=== PATIENT | female | born 1990 | race Native Hawaiian/Other Pacific Islander ===

== ENCOUNTER → 2016-07-11 | Outpatient (CLI) | payer OTHER ==
[2016-07-11 14:39] LABS: CH 31.7; CHCM 33.4; HCT 34.7 % (34.0-46.0); HDW 2.31; HGB 11.7 gm/dL (11.4-16.0); MCH 32.2 pg (25.0-35.0); MCHC 33.7 g/dL (31.0-37.0); MCV 95.4 fL (80.0-100.0); Mean Platelet Volume 6.7; RBC 3.64 m/uL (3.80-5.40); RDW 13.6 % (11.5-15.5); WBC 10.7 k/uL (3.8-10.6)
== END | disposition home or self-care (01) ==
LOC: LABWHC1 12:58
PROVIDERS: ATTEND Obstetrics & Gynecology
DX: Z34.92 Encounter for supervision of normal pregnancy, unspecified, second trimester (principal); Z3A.00 Weeks of gestation of pregnancy not specified
CPT/HCPCS: 36415; 82950; 85027

== ENCOUNTER 2016-10-28 06:00 | Inpatient (IN) | payer OTHER ==
--- NOTE | 2016-10-27 12:42 | P.HPOB ---
History of Present Illness H&P Date: 10/27/16 Chief Complaint: Induction of labor This is a 26-year-old female 1 para 0 with an estimated date of confinement of 10/20/2016, estimated gestational age of 41 and one sevenths weeks, who presents to labor and delivery for induction of labor secondary to postdates. She admits to good movement. She has been feeling irregular contractions. course has been essentially uncomplicated other than swelling in her legs and feet. labs: Syphilis antibody-negative Random glucose-75 Hepatitis B surface antigen-negative Hemoglobin-11.6 Rubella-low positive Antibody screen-negative Blood type-AB+ Obstetrical ultrasound-normal anatomy One hour Glucola-87 Group B streptococcus-negative Obstetrical history: Gynecologic history: No history of sexual transmitted diseases Social history: She is single and works at [employer] in [employer] Constitutional: Denies chills, Denies fever Eyes: denies blurred vision, denies pain Ears, nose, mouth and throat: Denies headache, Denies sore throat Cardiovascular: Denies chest pain, Denies shortness of breath Respiratory: Denies cough Gastrointestinal: Reports abdominal pain (Irregular contractions) Genitourinary: Reports pelvic pain, Reports Musculoskeletal: Reports low back pain Musculoskeletal: bilateral: ankle swelling, foot swelling Neurological: Reports as per HPI, Denies numbness, Denies weakness Psychiatric: Denies anxiety, Denies depression Past Medical History Past Medical History: No Reported History Past Surgical History: No Surgical Hx Reported Past Psychological History: No Psychological Hx Reported Smoking Status: Current every day smoker Past Alcohol Use History: None Reported Past Drug Use History: None Reported - Past Family History Father Family Medical History: Hypertension Medications and Allergies Home Medications Medication Instructions Recorded Confirmed Type Pnv No.95/Ferrous Fum/Folic AC 1 each PO 10/27/16 History [ Multivitamin Tablet] Allergies Allergy/AdvReac Type Severity Reaction Status Date / Time No Known Allergies Allergy Verified 10/27/16 12:41 Exam Osteopathic Statement: *. No significant issues noted on an osteopathic structural exam other than those noted in the History and Physical/Consult. HEENT: Within normal limits Heart: Regular rate and rhythm Lungs: Clear to auscultation bilaterally Abdomen: Cervix: 3 cm/70%/-1 station heart tones: Reactive Contractions: Irregular Extremities: Negative Homans Assessment and Plan (1) Post term , 41 weeks Status: Acute Plan: Proceed with oxytocin induction of labor. Expectant management. Epidural anesthesia if desired.
[2016-10-28] MEDS ORDERED: CARBOPROST TROMETHAMINE 250 MCG/ML 1 ML AMP IM PRN (06:16)
[2016-10-28] MEDS ORDERED: TERBUTALINE 1 MG/ML VIAL SQ PRN (06:16)
[2016-10-28] MEDS ORDERED: LIDOCAINE 1% (PF) 10 MG/ML (30 ML SDV) SQ PRN (06:16)
[2016-10-28] MEDS ORDERED: LIDOCAINE 1% 20 ML VIAL (10MG/ML) FOR IV START INTRADERMA PRN (06:16)
[2016-10-28] MEDS ORDERED: OXYTOCIN 20 UNITS/1000 ML NS 1,000 ML IV SCH ×2 (06:16→20:41)
[2016-10-28] MEDS ORDERED: OXYTOCIN 10 UNIT/ML 1 ML VIAL IM PRN (06:16)
[2016-10-28] MEDS ORDERED: METHYLERGONOVINE 0.2 MG/ML 1 ML AMP IM PRN (06:16)
[2016-10-28 06:27] VITALS: BMI 36.2
[2016-10-28] MEDS: LACTATED RINGERS 1,000 ML IV SCH ×3 (06:40→18:04)
[2016-10-28 06:43] LABS: Basophils % (A) 0 %; CH 30.6; CHCM 33.4; Eosinophils # (A) 0.3 k/uL (0-0.7); Eosinophils % (A) 3 %; HCT 34.3 % (34.0-46.0); HDW 2.63; HGB 11.2 gm/dL (11.4-16.0); Luc # (Auto) 0.23; Luc % (Auto) 2; Lymphocytes # (A) 2.4 k/uL (1.0-4.8); Lymphocytes % (A) 20 %; MCH 30.2 pg (25.0-35.0); MCHC 32.8 g/dL (31.0-37.0); Mean Platelet Volume 8.4; Monocytes # (A) 0.6 k/uL (0-1.0); Monocytes % (A) 5 %; Neutrophils # (A) 8.6 k/uL (1.3-7.7); Neutrophils % (A) 71 %; RBC 3.73 m/uL (3.80-5.40); RDW 14.9 % (11.5-15.5); WBC 12.2 k/uL (3.8-10.6); WBC (Perox) 12.41
[2016-10-28] MEDS ORDERED: SODIUM CHLORIDE 0.9% 100 ML BAG ONE (12:55)
[2016-10-28] MEDS ORDERED: BUPIVACAINE (PF) 0.25% 30 ML VIAL ONE (12:55)
[2016-10-28] MEDS ORDERED: fentaNYL (PF) 50 MCG/ML 5 ML AMP ONE (12:55)
[2016-10-28] MEDS ORDERED: LANOLIN CREAM 5 GM TUBE TOPICAL PRN (20:41)
[2016-10-28] MEDS ORDERED: MEASLES-MUMPS-RUBELLA VACC/PF 12,500 UNIT/0.5 ML VIAL SQ ONE (20:41)
[2016-10-28] MEDS ORDERED: ACETAMINOPHEN TAB 325 MG TAB PO PRN (20:41)
[2016-10-28] MEDS ORDERED: ZOLPIDEM 5 MG TAB PO PRN (20:41)
[2016-10-28] MEDS ORDERED: WITCH HAZEL 1 EACH MED..PAD TOPICAL PRN (20:41)
[2016-10-28] MEDS ORDERED: HYDROCORTISONE 2.5% RECTAL CREAM 30 GM TUBE RECTAL PRN (20:41)
[2016-10-28] MEDS ORDERED: diphenhydrAMINE 50 MG CAP PO PRN (20:41)
[2016-10-28] MEDS ORDERED: Acetaminophen-Codeine 300-30mg TAB PO PRN (20:41)
[2016-10-28] MEDS ORDERED: diphenhydrAMINE 50 MG/ML 1 ML VIAL IVP PRN ×2 (20:41)
[2016-10-28] MEDS ORDERED: BENZOCAINE/MENTHOL SPRAY 1 GM/SPRAY AEROSOL TOPICAL PRN (20:41)
[2016-10-28] MEDS ORDERED: SIMETHICONE 80 MG CHEWABLE PO PRN (20:41)
[2016-10-28] MEDS ORDERED: diphenhydrAMINE 25 MG CAP PO PRN (20:41)
--- NOTE | 2016-10-28 20:53 | P.PROBDLV ---
Vaginal Delivery Note - . Vaginal Delivery Note: The patient progressed to complete dilation after oxytocin induction of labor and artificial rupture of membranes with clear fluid noted. She did receive epidural anesthesia. Once reaching complete dilation, she began pushing. 's head came to a crown. Perineum was anesthetized with 1% lidocaine and then a midline episiotomy was cut. With one further push, the infant's head delivered across the perineum followed by the anterior shoulder in the left occiput anterior lie with a nuchal left hand along with a loop of cord near the hand. Nose and mouth were bulb suctioned at the perineum and meconium fluid was noted at this time. With one further push, the remainder the infant easily delivered and was placed on mother's abdomen. Nose and mouth were again bulb suctioned and cord was clamped and cut. Infant was taken to warmer for evaluation and a viable male was noted with Apgars of 6 at 1 minute and 7 at 5 minutes and 9 at 10 minutes. weight was 7 lbs. 4 oz. Placenta delivered shortly thereafter, intact, with a three-vessel cord. Uterus contracted well after oxytocin was given and uterine massage was carried out. Inspection of the perineum revealed a midline episiotomy with no further extension. This area was anesthetized with 1% lidocaine and then sutured with 3 -0 and 2-0 Vicryl suture in the usual multilayer fashion. Estimated blood loss is approximately 200 mL's. Both mother and are in stable condition.
[2016-10-28] MEDS: IBUPROFEN 600 MG TAB PO PRN (21:01)
[2016-10-28 21:09] VITALS: RESP 16
[2016-10-28] MEDS: SENNOSIDES-DOCUSATE SODIUM 1 EACH TAB PO SCH (21:56)
[2016-10-28] MEDS: Acetaminophen-Codeine 300-30mg TAB PO PRN (23:54)
[2016-10-29] MEDS: IBUPROFEN 600 MG TAB PO PRN ×2 (04:51→14:12)
[2016-10-29 07:53] LABS: Basophils # (A) 0.1 k/uL (0-0.2); Basophils % (A) 0 %; CH 30.7; Eosinophils # (A) 0.2 k/uL (0-0.7); Eosinophils % (A) 1 %; HCT 26.6 % (34.0-46.0); HDW 2.58; Luc # (Auto) 0.21; Luc % (Auto) 1; Lymphocytes # (A) 2.3 k/uL (1.0-4.8); Lymphocytes % (A) 15 %; MCH 30.2 pg (25.0-35.0); MCHC 32.3 g/dL (31.0-37.0); MCV 93.5 fL (80.0-100.0); Mean Platelet Volume 8.3; Monocytes # (A) 0.7 k/uL (0-1.0); Monocytes % (A) 5 %; Neutrophils # (A) 11.7 k/uL (1.3-7.7); Neutrophils % (A) 77 %; RBC 2.85 m/uL (3.80-5.40); RDW 14.8 % (11.5-15.5); WBC 15.1 k/uL (3.8-10.6); WBC (Perox) 15.51
[2016-10-29 07:56] LABS: HGB 8.6 gm/dL (11.4-16.0)
[2016-10-29] MEDS: SENNOSIDES-DOCUSATE SODIUM 1 EACH TAB PO SCH ×2 (08:05→20:44)
[2016-10-29] MEDS: Acetaminophen-Codeine 300-30mg TAB PO PRN ×2 (10:06→19:40)
--- NOTE | 2016-10-29 10:23 | P.PNOBGVD ---
Subjective - Subjective Principal diagnosis: Status post vaginal delivery day #1 Interval history: Patient is doing well. She is sore on her bottom. Lochia is decreasing. She is breast-feeding. Pain is fairly well controlled with ibuprofen and Tylenol 3. Patient reports: Reports appetite normal, Reports voiding normally, Reports pain well controlled, Reports ambulating normally : doing well, nursing well Objective - Latest Vital Signs Latest vital signs: Vital Signs Temp Pulse Pulse Resp BP 10/29/16 08:06 98.5 F 90 16 123/80 10/29/16 04:00 98.9 F 94 16 121/74 10/29/16 00:00 98.3 F 98 16 109/73 10/28/16 22:45 98.0 F 116 H 16 116/72 10/28/16 22:15 92 16 120/60 10/28/16 21:45 90 16 118/70 10/28/16 21:30 90 16 114/64 10/28/16 21:15 91 16 115/64 10/28/16 21:00 108 H 16 118/65 10/28/16 20:45 98.0 F 100 16 115/61 Intake and Output 10/28/16 10/29/16 10/29/16 22:59 06:59 14:59 Intake Total 44.2 Balance 44.2 Intake: Intake, IV Titration 44.2 Amount Oxytocin 20 Units/1000 ml 44.2 Ns 1,000 ml @ 1 MILLIUNIT/MIN 3 mls/hr IV .Q24H ANATOLY Rx#:[id number] Other: # Voids 1 - Exam Extremities: Present: edema (1-2+ pitting edema). Absent: tenderness Abdomen: Present: normal appearance, soft. Absent: distention, tenderness Uterus: Present: normal, firm. Absent: tenderness - Labs Labs: Abnormal Lab Results - Last 24 Hours (Table) 10/29/16 Range/Units 06:55 WBC 15.1 H (3.8-10.6) k/uL RBC 2.85 L (3.80-5.40) m/uL Hgb 8.6 L D (11.4-16.0) gm/dL Hct 26.6 L (34.0-46.0) % Neutrophils # 11.7 H (1.3-7.7) k/uL Assessment and Plan (1) Post term , 41 weeks Narrative/Plan: Impression is status post vaginal delivery day #1. Plan is to continue with care today and anticipate discharge home tomorrow. Current Visit: Yes Status: Acute Code(s): O48.0 - POST-TERM ; Z3A.41 - 41 WEEKS GESTATION OF SNOMED Code(s): 493760554
[2016-10-30] MEDS: IBUPROFEN 600 MG TAB PO PRN ×2 (00:14→12:05)
[2016-10-30 00:47] VITALS: TEMP 98.3
[2016-10-30] MEDS: Acetaminophen-Codeine 300-30mg TAB PO PRN ×2 (04:09→08:17)
[2016-10-30] MEDS: SENNOSIDES-DOCUSATE SODIUM 1 EACH TAB PO SCH (08:17)
--- NOTE | 2016-10-30 08:40 | P.DS ---
Providers Date of admission: 10/28/16 06:03 Expected date of discharge: 10/30/16 Attending physician: Sofya Paige Primary care physician: Stated None - Discharge Diagnosis(es) (1) Post term , 41 weeks Current Visit: Yes Status: Acute Hospital Course: This is a 26-year-old female 1 para 0 at 41 and one sevenths weeks who presented for induction of labor. She underwent oxytocin induction of labor and delivered a viable male on 10/28/2016 with scores of 6 at 1 minute and 7 at 5 minutes and 9 at 10 minutes, and weight of 7 lbs. 4 oz. Her course is been uncomplicated. She is breast-feeding. Lochia is decreasing. Pain is fairly well controlled with ibuprofen and Tylenol 3. Vital signs are stable. Abdomen is soft with fundus firm and nontender. Extremities show negative Homans. Impression is status post vaginal delivery day #2. Plan is to discharge home today. Routine instructions are given. She will be given a prescription for ibuprofen and Tylenol 3 along with a prescription for a breast pump. She is advised to call the office if she has any further questions or concerns prior to her appointment time. She is advised to follow up in the office in 6 weeks for a check. Procedures: Oxytocin induction of labor Spontaneous vaginal delivery of a viable male infant on 10/28/2016 Patient Condition at Discharge: Stable Plan - Discharge Summary New Discharge Prescriptions: New Acetaminophen-Codeine 300-30mg [Tylenol w/codeine #3] 1 each PO Q4HR PRN #30 tab PRN Reason: Mild Pain exceeding Tylenol Ibuprofen [Motrin] 600 mg PO Q6HR PRN #60 tab PRN Reason: Mild Pain Or Fever >= 100.5 Continue Pnv No.95/Ferrous Fum/Folic AC [ Multivitamin Tablet] 1 tab PO DAILY Discharge Medication List Pnv No.95/Ferrous Fum/Folic AC [ Multivitamin Tablet] 1 tab PO DAILY [History] Acetaminophen-Codeine 300-30mg [Tylenol w/codeine #3] 1 each PO Q4HR PRN #30 tab 10/30/16 [Rx] Ibuprofen [Motrin] 600 mg PO Q6HR PRN #60 tab 10/30/16 [Rx] Follow up Appointment(s)/Referral(s): Sofya Paige DO [Doctor of Osteopathic Medicine] - 6 Weeks Activity/Diet/Wound Care/Special Instructions: Instructions 1. Do not begin any exercise program for 3 weeks. 2. Do not resume sexual relations for 3 weeks or longer if uncomfortable. 3. You may take tub baths or showers at any time. 4. You may use tampons if desired after 3 weeks. 5. Keep the area of episiotomy (stitches) clean and dry. 6. If you are not nursing, wear a good fitting, supportive bra during the day and limit fluid intake for at least 1 week to prevent breast engorgement. 7. Call the office, [phone], within the next week to make appointment for your 6 week checkup if it has not already been made. 8. Report any of the following occurrences to the doctor promptly: a. Heavy, excessive bleeding b. Chills, fever c. Burning or frequency of urination d. Pain or redness and breasts if nursing e. Increasing pain or swelling in episiotomy (stitches). In addition to the above instructions, the following additional should be followed: 1. No heavy lifting or straining (exercising) until after 6 week checkup. 2. Keep abdominal incision clean and dry: You may wear a dressing if more comfortable. 3. Make office appointment for 10 days after going home or as instructed by her doctor. Discharge Disposition: HOME SELF-CARE
[2016-10-30 08:43] VITALS: BP 119/77; PULSE 85
== END 2016-10-30 12:30 | disposition home or self-care (01) | DRG 775 ==
LOC: 4FBP 06:03
PROVIDERS: ADMIT Obstetrics & Gynecology; ATTEND Obstetrics & Gynecology
PROC: 10E0XZZ Delivery of Products of Conception, External Approach (ICD-10-PCS; principal; 2016-10-28)
PROC: 0W8NXZZ Division of Female Perineum, External Approach (ICD-10-PCS; 2016-10-28)
PROC: 10907ZC Drainage of Amniotic Fluid, Therapeutic from Products of Conception, Via Natural or Artificial Opening (ICD-10-PCS; 2016-10-28)
PROC: 3E033VJ Introduction of Other Hormone into Peripheral Vein, Percutaneous Approach (ICD-10-PCS; 2016-10-28)
PROC: 00HU33Z Insertion of Infusion Device into Spinal Canal, Percutaneous Approach (ICD-10-PCS; 2016-10-28)
PROC: 3E0R3CZ (ICD-10-PCS; 2016-10-28)
PROC: 3E0134Z Introduction of Serum, Toxoid and Vaccine into Subcutaneous Tissue, Percutaneous Approach (ICD-10-PCS; 2016-10-28)
DX: O48.0 Post-term pregnancy (principal); F17.200 Nicotine dependence, unspecified, uncomplicated; O99.334 Smoking (tobacco) complicating childbirth; O77.0 Labor and delivery complicated by meconium in amniotic fluid; Z3A.41 41 weeks gestation of pregnancy; Z23 Encounter for immunization; Z37.0 Single live birth; O69.81X0 Labor and delivery complicated by cord around neck, without compression, not applicable or unspecified
CPT/HCPCS: 85025; 88307; 90707

== ENCOUNTER → 2019-04-27 | Outpatient (CLI) | payer OTHER ==
--- NOTE | 2019-04-27 15:47 | US ---
EXAMINATION TYPE: US pelvis complete transvag DATE OF EXAM: 04/27/2019 COMPARISON: NONE CLINICAL HISTORY: 28-year-old female N94.6 DYSMENORRHEA. TECHNIQUE: Transvaginal (TV) and Transabdominal (TA) . Transabdominal sonographic images of the pel vis were acquired. Transvaginal sonographic images were medically necessary to better assess the fol lowing anatomy: Ovaries. FINDINGS: EXAM MEASUREMENTS: Uterus: 6.5 x 3.0 x 5.0 cm Endometrial Stripe: .3 cm Right Ovary: 2.5 x 1.7 x 1.8 cm Left Ovary: 2.5 x 1.4 x 2.1 cm 1. Uterus: Anteverted, wnl 2. Endometrium: wnl 3. Right Ovary: wnl 4. Left Ovary: wnl Normal follicular change of the ovaries. 5. Bilateral Adnexa: wnl 6. Posterior cul-de-sac: wnl IMPRESSION: Normal follicular change in the ovaries. Endometrial stripe measures 3 mm thick. No specific abnormal ity seen.
== END | disposition home or self-care (01) ==
LOC: RADUSWWP 14:05
PROVIDERS: ATTEND Obstetrics & Gynecology
DX: N94.6 Dysmenorrhea, unspecified (principal); Z13.29 Encounter for screening for other suspected endocrine disorder
CPT/HCPCS: 36415; 76830; 76856; 84439; 84443

== ENCOUNTER → 2019-08-05 | Outpatient (CLI) | payer OTHER ==
--- NOTE | 2019-08-05 15:38 | US ---
EXAMINATION TYPE: Transabdominal DATE OF EXAM: 08/05/2019 2:28 PM COMPARISON: NONE CLINICAL HISTORY: O46.91 BLEEDING SPOTTING ANTEPARTUM. Pelvic cramping EXAM PERFORMED: Transabdominal (TA) EXAM MEASUREMENTS: GESTATIONAL AGE / DATING Physician Established: Not established yet Dates by LMP: Unknown Dates by First Scan: This is 1st scan Dates by Current Scan for: ( 9 weeks/0 days) EDC: 03/09/2020 MATERNAL ANATOMY Uterus: 12.3 x 5.5 x 5.9cm, anteverted Right Ovary: 2.6 x 1.7 x 2.1cm Left Ovary: 2.8 x 1.6 x 1.5cm Post CDS / Adnexa: wnl Presence of free fluid: no Presence of corpus luteal cyst: right ovary: 1.5cm Presence of subchorionic bleed: no GESTATION / SURVEY CRL: 2.3cm (9 weeks/0 days) Yolk Sac (normal less than 6mm): 3.7mm Heart Rate: 176 bpm Rhythm: Normal IUP: Live IUP Date of LMP: Unknown Beta HcG (if available): Not available at time of exam. Live single IUP measuring 9 weeks 0 days with a heart rate of 176bpm and an estimated delivery date o f 03/09/2020. IMPRESSION: Single live intrauterine with a sonographic age of 9 weeks and 0 days and an es timated date of delivery of 03/09/2020.
== END | disposition home or self-care (01) ==
LOC: RADUSWWP 14:00
PROVIDERS: ATTEND Obstetrics & Gynecology
DX: O46.91 Antepartum hemorrhage, unspecified, first trimester (principal); Z3A.09 9 weeks gestation of pregnancy
CPT/HCPCS: 76801

== ENCOUNTER 2020-03-09 06:00 | Inpatient (IN) | payer OTHER ==
--- NOTE | 2020-03-08 20:58 | P.HPOB ---
History of Present Illness H&P Date: 03/08/20 Chief Complaint: Induction of labor This is a 29 y.o. female, 3, para 1, with an estimated date of confinement of 03/09/2020, estimated gestational age of 40 weeks, who presents for induction of labor. She has been feeling frequent contractions and pressure. course has been uncomplicated. labs: GC/Chlamydia/Trich-neg Hepatitis B surface antigen-neg RPR-NR Rubella-immune Blood type-AB+ Antibody screen-neg Hemoglobin-12.3 Random glucose-90 Anatomy scan-normal anatomy 1 hr. GTT-45 GBS-neg OB Hx: . History of 1 vaginal delivery at 41 weeks, 7#4oz. [employer] Faculty Member Hx: No hx STDs. Social Hx: Single. 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 Review of Systems Constitutional: Denies chills, Denies fever Eyes: denies blurred vision, denies pain Cardiovascular: Denies chest pain, Denies shortness of breath Respiratory: Denies cough Gastrointestinal: Reports abdominal pain (irregular contractions) Genitourinary: Reports pelvic pain, Reports Musculoskeletal: Reports low back pain Neurological: Denies numbness, Denies weakness Psychiatric: Denies anxiety, Denies depression Past Medical History Past Medical History: No Reported History History of Any Multi-Drug Resistant Organisms: None Reported Past Surgical History: No Surgical Hx Reported Past Anesthesia/Blood Transfusion Reactions: No Reported Reaction Past Psychological History: No Psychological Hx Reported Smoking Status: Former smoker Past Alcohol Use History: None Reported Past Drug Use History: None Reported - Past Family History Father Family Medical History: Hypertension Medications and Allergies Home Medications Medication Instructions Recorded Confirmed Type Pnv No.95/Ferrous Fum/Folic AC 1 tab PO DAILY 10/27/16 10/29/16 History [ Multivitamin Tablet] Allergies Allergy/AdvReac Type Severity Reaction Status Date / Time No Known Allergies Allergy Verified 10/28/16 06:16 Exam Osteopathic Statement: *. No significant issues noted on an osteopathic structural exam other than those noted in the History and Physical/Consult. HEENT: within normal limits Heart: regular rate and rhythm Lungs: clear to auscultation bilaterally Abdomen: , non-tender Cervix: 5 cm/70%/-2 Heart Tones: 140's by doppler Extremities: neg. Isaias's Assessment and Plan (1) 40 weeks gestation of Status: Acute Code(s): Z3A.40 - 40 WEEKS GESTATION OF SNOMED Code(s): 10640602 Plan: Admit for induction of labor. Expectant management. Epidural anesthesia if desired.
[2020-03-09] MEDS ORDERED: CARBOPROST TROMETHAMINE 250 MCG/ML 1 ML AMP IM PRN (06:19)
[2020-03-09] MEDS ORDERED: LIDOCAINE 0.5% (PF) 5 MG/ML (50 ML SDV) SQ PRN (06:19)
[2020-03-09] MEDS ORDERED: TERBUTALINE 1 MG/ML VIAL SQ PRN (06:19)
[2020-03-09] MEDS ORDERED: LIDOCAINE 1% (10MG/ML) FOR IV START INTRADERMA PRN (06:19)
[2020-03-09] MEDS ORDERED: OXYTOCIN 10 UNIT/ML 1 ML VIAL IM PRN (06:19)
[2020-03-09] MEDS ORDERED: OXYTOCIN 30 UNITS/500 ML NS 30 UNIT in SALINE 1 500ML.BAG IV SCH (06:19)
[2020-03-09] MEDS ORDERED: LACTATED RINGERS 1,000 ML IV SCH (06:19)
[2020-03-09] MEDS ORDERED: METHYLERGONOVINE 0.2 MG/ML 1 ML AMP IM PRN (06:19)
[2020-03-09 06:35] LABS: Basophils # (A) 0.1 k/uL (0-0.2); Basophils % (A) 1 %; Eosinophils # (A) 0.3 k/uL (0-0.7); Eosinophils % (A) 3 %; HCT 34.8 % (34.0-46.0); HGB 11.6 gm/dL (11.4-16.0); Lymphocytes # (A) 2.3 k/uL (1.0-4.8); Lymphocytes % (A) 23 %; MCH 29.4 pg (25.0-35.0); MCHC 33.3 g/dL (31.0-37.0); MCV 88.3 fL (80.0-100.0); Mean Platelet Volume 7.8; Monocytes # (A) 0.4 k/uL (0-1.0); Monocytes % (A) 4 %; Neutrophils # (A) 6.5 k/uL (1.3-7.7); Neutrophils % (A) 66 %; Platelet Count 285 k/uL (150-450); RBC 3.94 m/uL (3.80-5.40); RDW 13.8 % (11.5-15.5); WBC 9.9 k/uL (3.8-10.6)
[2020-03-09] MEDS ORDERED: SIMETHICONE 80 MG CHEWABLE PO PRN (13:05)
[2020-03-09] MEDS ORDERED: ZOLPIDEM 5 MG TAB PO PRN (13:05)
[2020-03-09] MEDS ORDERED: HYDROCORTISONE 2.5% RECTAL CREAM 30 GM TUBE RECTAL PRN (13:05)
[2020-03-09] MEDS ORDERED: BENZOCAINE/MENTHOL SPRAY 1 GM/SPRAY AEROSOL TOPICAL PRN (13:05)
[2020-03-09] MEDS ORDERED: LANOLIN CREAM 5 GM TUBE TOPICAL PRN (13:05)
[2020-03-09] MEDS ORDERED: diphenhydrAMINE 50 MG CAP PO PRN (13:05)
[2020-03-09] MEDS ORDERED: diphenhydrAMINE 25 MG CAP PO PRN (13:05)
[2020-03-09] MEDS ORDERED: OXYTOCIN 20 UNITS/1000 ML NS 1,000 ML IV SCH (13:05)
[2020-03-09] MEDS ORDERED: diphenhydrAMINE 50 MG/ML 1 ML VIAL IVP PRN ×2 (13:05)
--- NOTE | 2020-03-09 13:12 | P.PROBDLV ---
Vaginal Delivery Note - . Vaginal Delivery Note: The patient progressed to complete dilation after oxytocin induction of labor and artificial rupture membranes with clear fluid noted. Once reaching complete, she began pushing. Infant's head came to a crown. With one further push, and the 's head delivered across the perineum followed by the anterior shoulder. Nose and mouth were bulb suctioned at the perineum. Nuchal cord times one was doubly clamped and cut and removed from around the 's head. With one remaining push, the remainder the easily delivered and was placed on mother's abdomen. Nose and mouth again were bulb suctioned and was taken to warmer for evaluation. A viable male infant was noted with scores of 7 at 1 minute and 9 at 5 minutes and weight of 8 lbs. 4 oz. Placenta delivered shortly thereafter, intact, with a three-vessel cord. Uterus contracted fairly well after oxytocin was given and uterine massage was carried out. Inspection of the perineum revealed a second-degree perineal laceration. This area was anesthetized with 1% lidocaine and then sutured with 30 and 2-0 Vicryl suture in the usual multilayer fashion. Estimated blood loss is approximately 200 mL's. Both mother and infant are in stable condition.
[2020-03-09] MEDS: IBUPROFEN 600 MG TAB PO PRN ×2 (14:28→20:28)
[2020-03-09] MEDS: SENNOSIDES-DOCUSATE SODIUM 1 EACH TAB PO SCH (20:27)
[2020-03-10 05:04] LABS: Basophils % (A) 0 %; Eosinophils # (A) 0.2 k/uL (0-0.7); Eosinophils % (A) 2 %; HCT 30.6 % (34.0-46.0); HGB 10.1 gm/dL (11.4-16.0); Lymphocytes # (A) 3.1 k/uL (1.0-4.8); Lymphocytes % (A) 23 %; MCH 29.4 pg (25.0-35.0); MCHC 33.1 g/dL (31.0-37.0); MCV 88.9 fL (80.0-100.0); Mean Platelet Volume 7.8; Monocytes # (A) 0.6 k/uL (0-1.0); Monocytes % (A) 4 %; Neutrophils % (A) 69 %; Platelet Count 257 k/uL (150-450); RBC 3.44 m/uL (3.80-5.40); RDW 14.1 % (11.5-15.5); WBC 13.1 k/uL (3.8-10.6)
--- NOTE | 2020-03-10 05:37 | P.DS ---
Providers Date of admission: 03/09/20 06:05 Expected date of discharge: 03/10/20 Attending physician: Sofya Paige Primary care physician: Stated None - Discharge Diagnosis(es) (1) 40 weeks gestation of Current Visit: No Status: Acute Hospital Course: This is a 29-year-old female 3 para 1 at 40-0/7 weeks who presented for induction of labor. She underwent oxytocin induction of labor and delivered vaginally a viable male with scores of 7 at 1 minute and 9 at 5 minutes and infant weight of 8 lbs. 4 oz. Her course has been essentially uncomplicated. Lochia is decreasing. Pain is fairly well controlled. She is breast feeding. Vital signs are stable. Abdomen is soft with fundus firm and nontender. Extremities show negative Homans. Impression is status post vaginal delivery day #1. Plan is to discharge home today. Routine instructions are given. She will be given a prescription for ibuprofen and a breast pump. She is advised to follow up in the office in 6 weeks for check. She is advised to call the office if she has any further questions or concerns prior to her appointment time. Procedures: Oxytocin induction of labor Spontaneous vaginal delivery of a viable male on 03/09/2020 Patient Condition at Discharge: Stable Plan - Discharge Summary New Discharge Prescriptions: New Ibuprofen [Motrin] 600 mg PO Q6HR PRN #60 tab PRN Reason: Mild Pain Or Fever >= 100.5 Continue Pnv No.95/Ferrous Fum/Folic AC [ Multivitamin Tablet] 1 tab PO DAILY Discharge Medication List Pnv No.95/Ferrous Fum/Folic AC [ Multivitamin Tablet] 1 tab PO DAILY 10/27/16 [History] Ibuprofen [Motrin] 600 mg PO Q6HR PRN #60 tab 03/10/20 [Rx] Follow up Appointment(s)/Referral(s): Sofya Paige DO [Doctor of Osteopathic Medicine] - 6 Weeks Activity/Diet/Wound Care/Special Instructions: Instructions 1. Do not begin any exercise program for 3 weeks. 2. Do not resume sexual relations for 3 weeks or longer if uncomfortable. 3. You may take tub baths or showers at any time. 4. You may use tampons if desired after 3 weeks. 5. Keep the area of episiotomy (stitches) clean and dry. 6. If you are not nursing, wear a good fitting, supportive bra during the day and limit fluid intake for at least 1 week to prevent breast engorgement. 7. Call the office, [phone], within the next week to make appointment for your 6 week checkup if it has not already been made. 8. Report any of the following occurrences to the doctor promptly: a. Heavy, excessive bleeding b. Chills, fever c. Burning or frequency of urination d. Pain or redness and breasts if nursing e. Increasing pain or swelling in episiotomy (stitches). In addition to the above instructions, the following additional should be followed: 1. No heavy lifting or straining (exercising) until after 6 week checkup. 2. Keep abdominal incision clean and dry: You may wear a dressing if more comfortable. 3. Make office appointment for 10 days after going home or as instructed by her doctor. Discharge Disposition: HOME SELF-CARE
[2020-03-10] MEDS: IBUPROFEN 600 MG TAB PO PRN ×2 (06:46→18:40)
[2020-03-10] MEDS: ACETAMINOPHEN TAB 325 MG TAB PO PRN ×2 (08:48→23:30)
[2020-03-10] MEDS: SENNOSIDES-DOCUSATE SODIUM 1 EACH TAB PO SCH ×2 (12:38→19:53)
[2020-03-11] MEDS: IBUPROFEN 600 MG TAB PO PRN (07:57)
[2020-03-11] MEDS: SENNOSIDES-DOCUSATE SODIUM 1 EACH TAB PO SCH (07:57)
--- NOTE | 2020-03-11 08:01 | P.PNOBGVD ---
Subjective - Subjective Patient reports: Reports appetite normal, Reports voiding normally, Reports pain well controlled, Reports ambulating normally : doing well Objective - Latest Vital Signs Latest vital signs: Vital Signs Temp Pulse Resp BP Pulse Ox 03/11/20 00:00 98.1 F 74 16 109/65 98 03/10/20 16:00 98.1 F 92 16 116/78 - Exam Lungs: bilateral: normal Chest: Normal S1, Normal S2 Extremities: Present: normal Abdomen: Present: normal appearance, soft Uterus: Present: normal, firm Assessment and Plan Assessment: day #2. Patient was initially discharged yesterday by Dr. Paige however the baby has developed some jaundice issues and therefore she elected to stay. Vital signs are stable and she is afebrile. Patient is having normal lochia. Plan today is to continue routine care discharge home later today (1) 40 weeks gestation of Current Visit: No Status: Acute Code(s): Z3A.40 - 40 WEEKS GESTATION OF SNOMED Code(s): 07271419
[2020-03-11] MEDS: ACETAMINOPHEN TAB 325 MG TAB PO PRN (10:17)
[2020-03-11 10:51] VITALS: BP 119/74; PULSE 93; RESP 18; TEMP 98.4
== END 2020-03-11 13:18 | disposition home or self-care (01) | DRG 807 ==
LOC: 4FBP 06:05
PROVIDERS: ADMIT Obstetrics & Gynecology; ATTEND Obstetrics & Gynecology
PROC: 10E0XZZ Delivery of Products of Conception, External Approach (ICD-10-PCS; principal; 2020-03-09)
PROC: 0KQM0ZZ Repair Perineum Muscle, Open Approach (ICD-10-PCS; principal; 2020-03-09)
PROC: 3E033VJ Introduction of Other Hormone into Peripheral Vein, Percutaneous Approach (ICD-10-PCS; principal; 2020-03-09)
PROC: 10907ZC Drainage of Amniotic Fluid, Therapeutic from Products of Conception, Via Natural or Artificial Opening (ICD-10-PCS; principal; 2020-03-09)
DX: O69.81X0 Labor and delivery complicated by cord around neck, without compression, not applicable or unspecified (principal); Z37.0 Single live birth; O70.1 Second degree perineal laceration during delivery; Z3A.40 40 weeks gestation of pregnancy; Z79.899 Other long term (current) drug therapy; Z87.891 Personal history of nicotine dependence; Z82.49 Family history of ischemic heart disease and other diseases of the circulatory system
CPT/HCPCS: 85025; 86850; 86900; 86901